=== PATIENT | male | born 1940 | race Caucasian/White ===

== ENCOUNTER → 2017-05-09 | Outpatient (CLI) | payer OTHER ==
--- NOTE | 2017-05-09 14:38 | PCVCIMAG ---
APPROVED REPORT Laterality: Bilateral Indications Bruit Stenosis Doppler Spectral Velocity Analysis PSV / EDVPSV / EDV ECA (R) 104 / 14 cm/sECA (L) 111 / 11 cm/s dICA (R) 60 / 17 cm/sdICA (L) 78 / 23 cm/s Chang (R) 111 / 27 cm/smICA (L) 124 / 28 cm/s pICA (R) 137 / 33 cm/spICA (L) 219 / 51 cm/s Bulb (R) 62 / 16 cm/sBulb (L) 77 / 17 cm/s dCCA (R) 65 / 16 cm/sdCCA (L) 79 / 13 cm/s mCCA (R) 70 / 16 cm/smCCA (L) 96 / 21 cm/s Vert (R) 49 / 10 cm/sVert (L) 51 / 14 cm/s Findings The right carotid bulb has moderate calcified plaque. The right proximal internal carotid artery shows 40-50% stenosis. The right common carotid artery shows <40% stenosis. The right external carotid artery shows <40% stenosis. The left carotid bulb has moderate calcified plaque. The left proximal internal carotid artery shows 70-80% stenosis. The left common carotid artery shows no significant stenosis. The left external carotid artery shows <40% stenosis. Conclusion 1. Right internal carotid artery stenosis (40-50%) 2. Left internal carotid artery stenosis (70-80%) 3. Antegrade vertebral flow Similar to August 2016
--- NOTE | 2017-05-09 15:08 | PCVCIMAG ---
EXAM: BILATERAL LOWER EXTREMITY ARTERIAL DUPLEX INDICATION: Peripheral Arterial Disease. Leg pain. FINDINGS: Right Leg: Elevated systolic velocity in the common femoral artery up to 417 cm/s consistent with 80% stenosis. Elevated velocity of 385 cm/s at the origin of the profunda femoral artery also compatible with 80% stenosis. 80-90% stenosis at the origin of the superficial femoral artery. Remainder of the superficial femoral artery is patent including the stent in the mid to distal portion. Popliteal artery is patent. The anterior tibial, peroneal, and posterior tibial arteries are patent. Left Leg: Satisfactory arterial waveforms in the common femoral and profunda femoral arteries with 50-60% stenosis at the origin the profunda femoral artery. Moderate plaque at the superficial femoral artery without flow-limiting stenosis. Popliteal artery is patent. Tibioperoneal trunk not well seen and this could be due to high-grade stenosis. The proximal anterior tibial artery also not well seen. Anterior tibial, peroneal, and posterior tibial arteries otherwise unremarkable. IMPRESSION: High-grade stenoses involving the right common femoral, profunda femoral, and origin right superficial femoral artery. Previous stent mid/distal right superficial femoral artery is patent. No high-grade left superficial femoral or popliteal artery stenosis. Question of high-grade stenosis left tibioperoneal trunk. LOC:[id number]
== END | disposition home or self-care (01) ==
LOC: PCVCIMAG 09:46
PROVIDERS: ATTEND Internal Medicine Cardiovascular Disease
DX: I65.23 Occlusion and stenosis of bilateral carotid arteries (principal); I70.201 Unspecified atherosclerosis of native arteries of extremities, right leg; I25.10 Atherosclerotic heart disease of native coronary artery without angina pectoris; I48.91 Unspecified atrial fibrillation; I10 Essential (primary) hypertension; I48.92 Unspecified atrial flutter; J44.9 Chronic obstructive pulmonary disease, unspecified; E78.00 Pure hypercholesterolemia, unspecified; E11.9 Type 2 diabetes mellitus without complications; Z95.1 Presence of aortocoronary bypass graft; Z96.651 Presence of right artificial knee joint; Z88.2 Allergy status to sulfonamides; Z79.01 Long term (current) use of anticoagulants; Z79.4 Long term (current) use of insulin; Z95.2 Presence of prosthetic heart valve; Z72.0 Tobacco use
CPT/HCPCS: 80061; 93005; 93880; 93925; G0463

== ENCOUNTER → 2017-05-16 | Outpatient (CLI) | payer OTHER ==
[~2017-05-16] MED LIST: ASPIRIN 325 MG TABLET ONE; CLOPIDOGREL BISULFATE 75 MG TABLET ONE; DIAZEPAM 10 MG TABLET. ONE; EPTIFIBATIDE BOLUS 2,000 MCG/ML 10ML VIAL. IV ONE; HEPARIN SODIUM 5,000 UNIT/ML VIAL for PCVC. ONE; HEPARIN for ARTERIAL LINE 1,500 ML ONE; HYDROcodone/APAP 5/325MG 1 TAB TABLET ONE; IODIXANOL 270 MG/ML 100 ML VIAL. ONE; IOHEXOL 350 MG/ML 100 ML VIAL. ONE; IV NORMAL SALINE 1000ML BAG 1,000 ML ONE; IV NORMAL SALINE 500ML BAG 0 ML ONE; LIDOCAINE 1% Multi-Dose 20 ML VIAL. ONE; MIDAZOLAM HCL/PF 2 MG/2 ML VIAL. ONE; fentaNYL PF VIAL 100 MCG/2 ML VIAL ONE; hydrALAZINE 20 MG/ML VIAL. ONE
--- NOTE | 2017-05-16 11:53 | PCVCINTER ---
EXAM: 1 CERVICOEPHALIC ARCH AORTOGRAM 2 BILATERAL CAROTID ANGIOGRAPHY 3 LEFT VERTEBROBASILAR ANGIOGRAPHY 4 BILATERAL RENAL ANGIOGRAPHY 5 AORTOGRAM BILATERAL LOWER EXTREMITY RUNOFF ANGIOGRAPHY INDICATION: Carotid occlusive disease. Left subclavian steal. Hypertension. Renal atherosclerosis. PROCEDURE: Procedure and risks of the procedures listed above were discussed with the patient and consent obtained. Risks including but not limited to bleeding, infection, stroke, vascular injury, neurologic injury, embolization, allergic reactions, and contrast-induced nephropathy requiring dialysis were discussed as appropriate and consent obtained. Patient was placed on the angiography table. IV conscious sedation was utilized with appropriate monitoring for 60 minutes. The right groin was prepped and draped in the normal sterile fashion. Ultrasound was used to interrogate the right groin and demonstrate the right common femoral artery. An ultrasound image was saved. Under ultrasound guidance a 21 gauge needle was used to gain access into the right common femoral artery and a 6F vascular sheath was placed. Catheter was placed into the ascending aorta and cervicocephalic aortic arch angiogram performed. Catheter was placed into the suprarenal abdominal aorta and abdominal aortic angiogram performed. Catheter was placed at the aortic bifurcation and both oblique views of the pelvis were obtained. Catheter was placed into the right common carotid artery and right common carotid angiogram performed. Catheter was placed into the left common carotid artery and left common carotid angiogram performed. Catheter was placed into the left subclavian artery and left vertebro-basilar angiogram performed. Catheter was placed into the right renal artery and right renal angiogram performed. Catheter was placed into the left renal artery and left renal angiogram performed. Catheter was placed to the level of the right common femoral artery and right leg runoff angiograms obtained. Catheter was then positioned into the left external iliac artery and left leg runoff angiogram obtained. Dr. Brewer joined the procedure and he then performed coronary angiography. Please see his separate dictation for full details. Catheters and wires were removed and hemostasis obtained using the Exoseal device. No immediate complications. FINDINGS: Cervicocephalic arch aortogram: The origins of the great vessels show satisfactory patency. Cranial directed flow in both vertebral arteries with the left vertebral artery being dominant. Right common carotid angiogram: This injection fills the right and left anterior cerebral and the right middle cerebral sedation which are all unremarkable. The cavernous carotid is patent. The internal carotid, external carotid, and common carotid arteries all show good patency. Left common carotid angiogram: This injection fills the left anterior and left middle cerebral distributions which are unremarkable. The cavernous carotid artery is unremarkable. Moderate calcific plaque in the carotid bulb results in 70% smooth stenosis at the origin of the internal carotid artery. The common and external carotid arteries are patent. Left vertebrobasilar angiogram: The left vertebral artery is patent as is the basilar artery and both posterior cerebral arteries. Right renal angiogram: Irregular plaque proximal vessel does not cause significant stenosis. Left renal angiogram: Diffuse plaque proximal vessel results in 40% stenosis. Aortogram: There is one right and one left renal artery. Moderate calcific plaque infrarenal abdominal aorta without significant stenosis. Pelvis: Moderate ulcerated plaque in the right and left common iliac arteries without flow-limiting stenosis. Mild stenosis at the origin of the right internal iliac artery and high-grade stenosis at the origin of the left internal iliac artery. Moderate scattered plaque in the right and left external iliac arteries without flow-limiting stenosis. Right leg: Irregular plaque mid and lower common femoral artery results in 60% stenosis. 80% stenosis at the origin the profunda femoral artery. The superficial femoral artery show satisfactory patency throughout including the stent in the distal SFA and upper popliteal artery. Portions of the popliteal artery are obscured by the knee arthroplasty. 50% stenosis distal popliteal artery. 70% stenosis at the origin of the anterior tibial artery. The tibioperoneal trunk is patent. Diffuse moderate stenosis midportion of the anterior tibial artery. Peroneal artery and posterior tibial artery are patent. Left leg: Moderate plaque common femoral artery does not cause flow-limiting stenosis. Profunda femoral arteries patent. Scattered plaque throughout the superficial femoral artery results in 50% stenosis in the mid vessel. Moderate plaque upper popliteal artery causing mild stenosis. The tibioperoneal trunk is patent. The anterior tibial artery is occluded throughout much of its length. 80% stenosis proximal posterior tibial artery. The peroneal artery shows good patency throughout. IMPRESSION: 70% stenosis at the origin of the left internal carotid artery. The right internal carotid artery shows satisfactory patency. Mild bilateral renal artery stenosis. 60% stenosis mid/lower right common femoral artery with 80% stenosis the origin the right profunda femoral artery. 50% stenosis distal right popliteal artery with 70% stenosis at the origin of the right anterior tibial artery. 50% stenosis mid left superficial femoral artery with occlusion of the left anterior tibial artery and 80% stenosis proximal left posterior tibial artery. LOC:[id number]
--- NOTE | 2017-05-21 09:22 | PCVCINTER ---
APPROVED REPORT Patient Details Patient Status: Room #: 2 The patient is a 76 year-old Male Event Personnel John Espinoza RN, Koby Fan RT(R)(), Kelsi Hawkins RT(R) Risk Factors Arterial HypertensionDysplipidemia (Type: 1), Peripheral Vascular Disease, Chronic Lung DiseaseHypercholesterolemia, Diabetes (Control: Insulin)Last Creatanine 1Tobacco History (Current/Recent(w/in 1 year)) Previous Procedures/Diagnoses Previous CABGPrevious PCI, Previous Femoral Procedure Procedure Narrative The patient was brought electively to the Cardiac Catheterization Laboratory and was prepped and draped in a sterile manner. The left femoral was infiltrated with 1% Lidocaine subcutaneous anesthesia. The left femoral accessed via ultrasound guidance. A 6 fr sheath was inserted into the left femoral artery. Coronary angiography was performed using coronary diagnostic catheters. The left coronary system was accessed and visualized with a Diagnostic catheter. An aortogram of the ascending aorta was performed. Closure device was deployed with a 6 Fr Mynx. Hemostasis was obtained with manual pressure following sheath removal without any complications. The patient tolerated the procedure well and there were no complications associated with the procedure. There was no hematoma. Fluoro Time: 2.6 minutes Dose: 1055 mGy Contrast Type and Amount: omni 350 90ml Hemodynamics The aortic pressure is 122/62 mmHg with a mean of 93 mmHg. Conclusion #1 supravalvular aortography reveals a prosthetic aortic valve with 1+ aortic insufficiency and normal aortic root #2 left main large and free of disease mild calcification giving rise to LAD and circumflex #3 LAD extends around the apex with mild irregularities no significant high-grade disease is noted. #4 small nondominant circumflex OM with mild irregularity #5 dominant right occluded #6 surgery single-vessel bypass at SVG to PDA which is intact mild irregularities relatively small PDA LUCA system but anatomically dominant vessel. No occlusive disease is noted. Pernicious and plan continued aggressive risk factor modification no indication for coronary intervention. No lifting for 48 hours Intersubject easier naqvi for a week. Follow-up scheduled 6 months.
== END | disposition home or self-care (01) ==
LOC: PCVCINTER 07:39
PROVIDERS: ATTEND Nuclear Medicine Nuclear Cardiology
DX: I65.29 Occlusion and stenosis of unspecified carotid artery (principal); I10 Essential (primary) hypertension; I70.1 Atherosclerosis of renal artery; G45.8 Other transient cerebral ischemic attacks and related syndromes
CPT/HCPCS: 36223; 36225; 36246; 36252; 75716; 76937; 93458; 93567; 99152; 99153; C1751; C1760; C1769; C1894; J0360; J1644; J2250; J3010; J7030; Q9967; J0690; J1327; J7040

== ENCOUNTER → 2018-02-18 | Outpatient (CLI) | payer OTHER | END | disposition home or self-care (01) | LOC: PCVCCLINIC 13:50 | DX: I25.10 Atherosclerotic heart disease of native coronary artery without angina pectoris (principal); I35.9 Nonrheumatic aortic valve disorder, unspecified; I77.9 Disorder of arteries and arterioles, unspecified; D68.59 Other primary thrombophilia; I73.9 Peripheral vascular disease, unspecified; E11.9 Type 2 diabetes mellitus without complications; E04.1 Nontoxic single thyroid nodule; E78.00 Pure hypercholesterolemia, unspecified; I10 Essential (primary) hypertension; F17.200 Nicotine dependence, unspecified, uncomplicated; R94.31 Abnormal electrocardiogram [ECG] [EKG]; Z79.4 Long term (current) use of insulin | CPT/HCPCS: 93005; G0463 ==

== ENCOUNTER → 2018-08-20 | Outpatient (CLI) | payer OTHER ==
--- NOTE | 2018-08-20 14:14 | PCVCIMAG ---
EXAM: BILATERAL CAROTID DUPLEX INDICATION: Carotid Occlusive Disease. FINDINGS: Doppler Measurements (centimeters per second): RIGHT: Peak CCA-75, Peak ECA-99, Diastolic ICA-31, Peak ICA-133, ICA/CCA Ratio-1.8. LEFT: Peak CCA-80, Peak ECA-157, Diastolic ICA-55, Peak ICA-270, ICA/CCA Ratio-3.4. RIGHT CAROTID: The carotid bulb has moderate plaque. The proximal internal carotid artery shows 50% stenosis. The common carotid artery shows no significant stenosis. The external carotid artery shows no significant stenosis. LEFT CAROTID: The carotid bulb has moderate plaque. The proximal internal carotid artery shows 70% stenosis. The common carotid artery shows no significant stenosis. The external carotid artery shows 50% stenosis. Antegrade flow in both vertebral arteries. IMPRESSION: 50% stenosis of the right internal carotid artery with moderate plaque. 70% stenosis of the left internal carotid artery with moderate plaque. Little overall change since April 2017. LOC:[id number]
--- NOTE | 2018-08-20 15:52 | PCVCIMAG ---
APPROVED REPORT Study performed: 08/20/2018 14:49:30 EXAM: Comprehensive 2D, Doppler, and color-flow Echocardiogram Patient Location: Echo lab Status: routine BSA: 2.29 HR: 68 bpmBP: 130/66 mmHg Rhythm: NSR Other Information Study Quality: Adequate Risk Factors: Cardiac Risk Factors: HTN, DM Indications A-flutter, #23 [place] mechanical AVR 2D Dimensions IVSd: 13.40 (7-11mm)LVOT Diam: 23.23 (18-24mm) LVDd: 44.73 mm PWd: 14.16 (7-11mm)Ascending Ao: 33.63 (22-36mm) LVDs: 34.67 (25-40mm) Left Atrium: 54.61 (27-40mm) Aortic Root: 36.31 mm LV Single Plane 4CH: 51.62 % LV Single Plane 2CH: 48.77 % Biplane EF: 50.0 % Volumes Left Atrial Volume (Systole) Single Plane 4CH: 181.68 mLSingle Plane 2CH: 159.71 mL LA ESV Index: 76.00 mL/m2 Aortic Valve AoV Peak Logan.: 1.74 m/s AO Peak Gr.: 12.11 mmHgLVOT Max P.30 mmHg AO Mean Gr.: 6.01 mmHgLVOT Mean P.72 mmHg AO V2 Mean: 1.12 m/sLVOT Max V: 0.94 m/s AO V2 VTI: 37.75 cmLVOT Mean V: 0.61 m/s YOSVANY (VTI): 2.41 [id number] V1 VTI: 21.49 cm YOSVANY Vmax: 2.29 cm2 SV (LVOT): 91.02 mL Mitral Valve E/A Ratio: 1.7 MV Decel. Time: 197.35 ms MV E Max Logan.: 1.35 m/s MV A Logan.: 0.79 m/s IVRT: 83.04 ms Pulmonary Valve PV Peak Logan.: 0.84 m/sPV Peak Gr.: 2.84 mmHg Tricuspid Valve TR Peak Logan.: 2.84 m/s TR Peak Gr.: 32.16 mmHg Left Ventricle The left ventricle is normal size. There is normal LV segmental wall motion. Mild concentric left ventricular hypertrophy. Left ventricular systolic function is normal. The left ventricular ejection fraction is within the normal range. LVEF is 55%. The left ventricular diastolic function is normal. Right Ventricle The right ventricle is normal size. The right ventricular systolic function is normal. Atria Left atrium is severely dilated. Right atrium is mildly dilated. Aortic Valve Normally functioning #23 [facility] mechanical valve in the aortic position. Mild aortic regurgitation. There is no evidence of aortic valve stenosis. Calculated aortic valve area is 2.4 cm2 with maximum pressure gradient of 12 mmHg and mean pressure gradient of 6 mmHg. Mitral Valve The mitral valve is normal in structure. Mild mitral regurgitation. No evidence of mitral valve stenosis. Tricuspid Valve The tricuspid valve is normal in structure. Mild tricuspid regurgitation with PAP of 39 mmHg. Pulmonic Valve The pulmonary valve is normal in structure. Mild pulmonic regurgitation. Great Vessels The aortic root is normal in size. IVC is normal in size and collapses >50% with inspiration. Pericardium There is no pericardial effusion. There is no pleural effusion. <Conclusion> The left ventricle is normal size. LVEF is 55%. The left ventricular diastolic function is normal. The right ventricle is normal size. Left atrium is severely dilated. Right atrium is mildly dilated. Normally functioning #23 [facility] mechanical valve in the aortic position. Mild aortic regurgitation. There is no evidence of aortic valve stenosis. Calculated aortic valve area is 2.4 cm2 with maximum pressure gradient of 12 mmHg and mean pressure gradient of 6 mmHg. Mild mitral regurgitation. Mild tricuspid regurgitation with PAP of 39 mmHg. The aortic root is normal in size. There is no pericardial effusion.
--- NOTE | 2018-08-20 16:51 | PCVCIMAG ---
EXAM: BILATERAL LOWER EXTREMITY ARTERIAL DUPLEX INDICATION: Peripheral Arterial Disease. Leg pain. FINDINGS: Right Le-70% stenosis right common femoral artery is unchanged. 60% proximal [place] superficial femoral artery. Previous stent mid/distal superficial femoral artery is patent. Popliteal artery is patent. The anterior tibial, peroneal, and posterior tibial arteries are patent. Left Le-50% stenosis left common femoral artery. Profunda femoral artery is patent. Superficial femoral artery and popliteal artery are patent. The anterior tibial artery is occluded and this is unchanged. The peroneal artery and posterior tibial artery are patent. IMPRESSION: 60-70% stenosis right common femoral artery is unchanged. Unchanged 60% proximal [place] right superficial femoral artery. Previous stent mid/distal right superficial femoral artery is patent. 40-50% stenosis left common femoral artery. Unchanged occlusion left anterior tibial artery. LOC:[id number]
== END | disposition home or self-care (01) ==
LOC: PCVCIMAG 13:23
PROVIDERS: ATTEND Internal Medicine Cardiovascular Disease
DX: I65.23 Occlusion and stenosis of bilateral carotid arteries (principal); I08.1 Rheumatic disorders of both mitral and tricuspid valves; I25.10 Atherosclerotic heart disease of native coronary artery without angina pectoris; E11.9 Type 2 diabetes mellitus without complications; F17.200 Nicotine dependence, unspecified, uncomplicated; I73.9 Peripheral vascular disease, unspecified
CPT/HCPCS: 93306; 93880; 93925

== ENCOUNTER → 2019-01-23 | Outpatient (CLI) | payer OTHER ==
[~2019-01-23] MED LIST changes: -ASPIRIN 325 MG TABLET ONE; -CLOPIDOGREL BISULFATE 75 MG TABLET ONE; -DIAZEPAM 10 MG TABLET. ONE; -EPTIFIBATIDE BOLUS 2,000 MCG/ML 10ML VIAL. IV ONE; -HEPARIN SODIUM 5,000 UNIT/ML VIAL for PCVC. ONE; -HEPARIN for ARTERIAL LINE 1,500 ML ONE; -HYDROcodone/APAP 5/325MG 1 TAB TABLET ONE; -IODIXANOL 270 MG/ML 100 ML VIAL. ONE; -IOHEXOL 350 MG/ML 100 ML VIAL. ONE; -IV NORMAL SALINE 1000ML BAG 1,000 ML ONE; -IV NORMAL SALINE 500ML BAG 0 ML ONE; -LIDOCAINE 1% Multi-Dose 20 ML VIAL. ONE; -MIDAZOLAM HCL/PF 2 MG/2 ML VIAL. ONE; +REGADENOSON 0.4 MG/5 ML DISP.SYRIN. IV ONE; -fentaNYL PF VIAL 100 MCG/2 ML VIAL ONE; -hydrALAZINE 20 MG/ML VIAL. ONE
--- NOTE | 2019-01-24 13:23 | PCVCIMAG ---
APPROVED REPORT Imaging Protocol: Rest Tc-99m/Stress Tc-99m 1 day Study performed: 01/23/2019 08:43:12 Indication: CAD , Chest pain Patient Location: Out-Patient Stress Nurse: Asya Salomon RN, Christi Muller RN CO Tech:Emily Ahumadalukas [facility] Ht: 6 ft 0 in Wt: 232 lbs BSA: 2.27 m2 HR: 73 bpm BP: 148/65 mmHg BMI: 31.4 Rhythm: Atrial Flutter, RBBB Medical History Medical History: COPD, CVD, CAD, PVD, Current Smoker, Atrial Fibrillation Medications: Metoprolol, Atorvastatin Allergies: Sulfa, Metformin Cardiac Risk Factors: Age Previous Cardiac Procedures: 2006 CABG Pretest Chest Pain Characteristics: No chest pain Exercise History: Sedentary Physical Disabilities: Uses a cane Meds Held (24 hrs): Metoprolol Resting Data Rest SPECT myocardial perfusion imaging was performed in supine position 45 minutes following the intravenous injection of 11.2 mCi of Tc-99m Sestamibi. Time of rest injection: 0850 Date: 01/23/2019 Administration Route: IV Administration Site: Left Hand Pharmacologic Stress Pharmacologic stress test was performed by injecting Regadenoson 0.4 mg IV push over 10-15 seconds immediately followed by the intravenous injection of 32.9 mCi of Tc-99m Sestamibi. Time of stress injection: 1015 Date: 01/23/2019 Administration Route: IV Administration Site: Left Hand Gated Stress SPECT was performed 45 minutes after stress injection. The images were gated to evaluate regional wall motion and calculate left ventricular ejection fraction. Stress Test Details Stress Test: Pharmacologic stress testing performed using 0.4 mg of regadenoson per 5 mL given IV over 10 seconds. Reason for pharmacologic stress test: Billy walks with a cane. HRMax Heart Rate (APMHR): 144 bpm Resting HR: 73 bpmTarget HR (85% APMHR): 122 bpm Max HR Achieved: 80 bpm % of APMHR: 55 Recovery HR: 74 bpm BP Resting BP: 148/65 mmHg Max BP: 150/69 mmHg Recovery BP: 130/59 mmHg ECG Resting ECG: Atrial Flutter, RBBB, , Clear Stress ECG: Atrial Flutter, RBBB Arrhythmia: PVC's Recovery ECG: Atrial Flutter, RBBB Clinical Reason for Termination: Completed protocol Stress Symptoms: Abdominal discomfort, Dyspnea, Nausea, Headache, Lightheaded Exercise duration: 0 min 55 sec Symptoms resolved with caffeine. Stress ECG Conclusion ECG: Non-ischemic Study Quality Study: Good Study Data Post stress, the left ventricular ejection was 72%.. SSS: 0 SRS: 0 SDS: 0 TID = 1.17. Perfusion No evidence of stress induced ischemia or prior myocardial infarction. Wall Motion Normal left ventricular size and function with no regional wall motion abnormalities. Nuclear Conclusion No evidence of stress induced ischemia or prior myocardial infarction. Normal left ventricular size and function with no regional wall motion abnormalities. Post stress, the left ventricular ejection was 72%. No change since prior study dated May 2016. Interpreted by: Bimal Ojeda MD Electronically Approved: 01/23/2019 17:35:09 <Conclusion> ECG: Non-ischemic
== END | disposition home or self-care (01) ==
LOC: PCVCIMAG 08:41
PROVIDERS: ATTEND Internal Medicine Cardiovascular Disease
DX: I25.10 Atherosclerotic heart disease of native coronary artery without angina pectoris (principal); R07.9 Chest pain, unspecified; I48.91 Unspecified atrial fibrillation
CPT/HCPCS: 78452; 93017; A9500; J2785

== ENCOUNTER → 2019-02-19 | Outpatient (CLI) | payer OTHER ==
--- NOTE | 2019-02-19 09:41 | PCVCIMAG ---
APPROVED REPORT Indications Stenosis Risk Factors Hypertension: Hyperlipidemia Diabetes, History of Smoking Doppler Spectral Velocity Analysis PSV / EDVPSV / EDV ECA (R) 118 / 12 cm/sECA (L) 139 / 15 cm/s dICA (R) 90 / 23 cm/sdICA (L) 86 / 22 cm/s Chang (R) 114 / 25 cm/smICA (L) 131 / 28 cm/s pICA (R) 130 / 27 cm/spICA (L) 279 / 50 cm/s Bulb (R) 70 / 16 cm/sBulb (L) 131 / 31 cm/s dCCA (R) 79 / 17 cm/sdCCA (L) 76 / 15 cm/s mCCA (R) 77 / 16 cm/smCCA (L) 96 / 17 cm/s Vert (R) 40 / 0 cm/sVert (L) 55 / 11 cm/s ICA/CCA 1.65 ICA/CCA 2.92 Basic Measurements Blood Pressure: Pulses: Right Left RightLeft Brachial(Sitting) 132/01rrPd434/80mmHgTemporal Real Time B-Mode Imaging Vert. (R)AntegradeVert. (L)Antegrade Findings The right carotid bulb has moderate calcified plaque. The right proximal internal carotid artery shows 40-50% stenosis. The right common carotid artery shows <40% stenosis. The right external carotid artery shows no significant stenosis. The left carotid bulb has severe plaque. The left proximal internal carotid artery shows 70-80% stenosis. The left common carotid artery shows no significant stenosis. The left external carotid artery shows >50% stenosis. Conclusion 1. Right internal carotid artery stenosis (40-50%). 2. Left internal carotid artery stenosis (70-80%) 3. Antegrade vertebral flow Similar to a study dated July 2018, April 2017.
--- NOTE | 2019-02-19 12:42 | PCVCIMAG ---
EXAM: BILATERAL LOWER EXTREMITY ARTERIAL DUPLEX INDICATION: Peripheral arterial disease. FINDINGS: Right Leg: Increased systolic velocity 335 cm/s mid/distal common femoral artery consistent with 60-70% stenosis is unchanged. Superficial femoral and popliteal arteries are patent. Previous popliteal artery stent is patent. The anterior tibial, peroneal, and posterior tibial arteries are patent. Left Leg: Common femoral and profunda femoral arteries are patent. Superficial femoral and popliteal artery are patent. Occlusion of the anterior tibial artery. The peroneal artery and posterior tibial arteries are patent. IMPRESSION: 60-70% stenosis mid/distal right common femoral artery. Previous right popliteal artery stent maintaining satisfactory patency. Unchanged occlusion left anterior tibial artery. Otherwise no flow limiting stenosis in the left lower extremity. LOC:[place] [id number]
== END | disposition home or self-care (01) ==
LOC: PCVCIMAG 09:24
PROVIDERS: ATTEND Internal Medicine Cardiovascular Disease
DX: I65.23 Occlusion and stenosis of bilateral carotid arteries (principal); I73.9 Peripheral vascular disease, unspecified; I25.10 Atherosclerotic heart disease of native coronary artery without angina pectoris; I35.9 Nonrheumatic aortic valve disorder, unspecified; I48.91 Unspecified atrial fibrillation; I77.9 Disorder of arteries and arterioles, unspecified; E78.00 Pure hypercholesterolemia, unspecified; E11.51 Type 2 diabetes mellitus with diabetic peripheral angiopathy without gangrene; I10 Essential (primary) hypertension; F17.200 Nicotine dependence, unspecified, uncomplicated; J44.9 Chronic obstructive pulmonary disease, unspecified; Z88.8 Allergy status to other drugs, medicaments and biological substances; Z88.2 Allergy status to sulfonamides; Z79.4 Long term (current) use of insulin; Z79.899 Other long term (current) drug therapy; Z95.2 Presence of prosthetic heart valve
CPT/HCPCS: 93880; 93925

== ENCOUNTER → 2019-08-22 | Outpatient (CLI) | payer OTHER ==
--- NOTE | 2019-08-22 12:04 | PCVCIMAG ---
APPROVED REPORT Laterality: Bilateral Indications Stenosis Doppler Spectral Velocity Analysis PSV / EDVPSV / EDV ECA (R) 96 / 9 cm/sECA (L) 170 / 12 cm/s dICA (R) 91 / 24 cm/sdICA (L) 94 / 26 cm/s Chang (R) 93 / 26 cm/smICA (L) 102 / 18 cm/s pICA (R) 121 / 26 cm/spICA (L) 261 / 47 cm/s Bulb (R) 69 / 16 cm/sBulb (L) 88 / 20 cm/s dCCA (R) 87 / 17 cm/sdCCA (L) 73 / 13 cm/s mCCA (R) 89 / 16 cm/smCCA (L) 93 / 14 cm/s pCCA (R) 96 / 16 cm/spCCA (L) Vert (R) 44 / 7 cm/sVert (L) 63 / 10 cm/s ICA/CCA 1.39 ICA/CCA 3.58 Findings The right carotid bulb has moderate calcified plaque. The right proximal internal carotid artery shows 40-50% stenosis. The right common carotid artery shows no significant stenosis. The right external carotid artery shows no significant stenosis. The left carotid bulb has moderately severe calcified plaque. The left proximal internal carotid artery shows 70-80% stenosis. The left common carotid artery shows no significant stenosis. The left external carotid artery shows no significant stenosis. Conclusion 1. Right internal carotid artery stenosis (40-50%). 2. Left internal carotid artery stenosis (70-80%) 3. Antegrade vertebral flow Similar to February 2019.
== END | disposition home or self-care (01) ==
LOC: PCVCIMAG 09:55
PROVIDERS: ATTEND Internal Medicine Cardiovascular Disease
DX: I65.23 Occlusion and stenosis of bilateral carotid arteries (principal); I25.10 Atherosclerotic heart disease of native coronary artery without angina pectoris; I10 Essential (primary) hypertension; I48.91 Unspecified atrial fibrillation; I73.9 Peripheral vascular disease, unspecified; E11.9 Type 2 diabetes mellitus without complications; E78.00 Pure hypercholesterolemia, unspecified; J44.9 Chronic obstructive pulmonary disease, unspecified; E04.9 Nontoxic goiter, unspecified; F17.210 Nicotine dependence, cigarettes, uncomplicated; Z95.1 Presence of aortocoronary bypass graft; Z79.4 Long term (current) use of insulin; Z95.2 Presence of prosthetic heart valve; Z79.01 Long term (current) use of anticoagulants; Z79.899 Other long term (current) drug therapy; Z72.89 Other problems related to lifestyle; Z88.2 Allergy status to sulfonamides; Z88.6 Allergy status to analgesic agent
CPT/HCPCS: 93880